=== PATIENT | female | born 1980 | race Caucasian/White ===

== ENCOUNTER → 2021-11-18 11:47 | Outpatient (REF) | payer BC, SELFPAY ==
--- NOTE | 2021-11-18 11:56 | CA_ITS ---
Transthoracic Echocardiogram Patient (Last, First, Middle): Ana Cristina García, Gender: Female Date of : 1980 Age: 41 Procedure Date: 11/18/2021 Procedure Type: Transthoracic Echocardiogram Location: [place] Height: 167.64 cm Weight: 106.6 kg BSA: 2.14 m2 Heart Rate: bpm BP: 115 / 80 mmHg Learning Development Specialist: CP/TO Referring MD: Sandra Alvarenga MD Symptoms: R00.2 PALPITATIONS Study Quality: Adequate ECG Rhythm: Sinus Conclusions: - The left ventricular systolic function is normal. The visually estimated ejection fraction is between 60-65%. - No obvious valvular pathology seen on this study. Findings Left Ventricle Normal left ventricular cavity size. There is normal left ventricular wall thickness. The left ventricular systolic function is normal. The visually estimated ejection fraction is between 60-65%. There is no evidence of regional wall motion abnormalities. Diastolic function is normal for age. LV peak global longitudinal strain -21.2% (normal). Right Ventricle Normal right ventricular cavity size and systolic function. Atria Both atria are normal in size. Aortic Valve There is a normal trileaflet aortic valve. There is no aortic valve stenosis. There is no aortic valve regurgitation. Mitral Valve The mitral valve appears normal. There is trace mitral valve regurgitation. There is no mitral valve stenosis. Pulmonic Valve The pulmonic valve is likely normal. Tricuspid Valve Normal tricuspid valve structure. There is trace tricuspid valve regurgitation. The pulmonary artery systolic pressure is normal. Great Vessels The asc aorta is normal in size. Venous The inferior vena cava is normal in size and collapses greater than 50% with inspiration. Pericardium/Pleural There is no evidence of pericardial effusion. Prior Study Comparison No significant change compared to prior study dated: 03/12/2016. (prior study from [facility]) Recommendations, Care & Conclusions No obvious valvular pathology seen on this study. Measurements 2D Linear Measurements IVSd: 0.79 0.6-0.9/0.6-1.0 cm LVIDd: 5.01 3.9-5.3/4.2-5.9 cm LVIDd Index: 2.34 2.4-3.2/2.2-3.1 cm/m2 LVIDs: 3.38 2.0-3.6 cm LVPWd: 0.90 0.7-1.1 cm LA Diam: 3.90 2.7-3.8/3.0-4.0 cm LAIDs Index: 1.82 1.5-2.3 cm/m2 LV Mass: 181.87 67-162/88-224 g LV Mass Index: 84.99 43-95/49-115 g/m2 LVOT Diam: 2.10 3.0+(-)1.3 cm 2D Systolic Function EF 4C: 56.40 >55% EF 2C: 57.10 >55% EF BiP: 58.40 >55% Mitral Valve MV Pk E: 0.98 MV PK A: 0.63 MV Decel Time: 197.00 E/A: 1.50 E'Lateral: 15.00 E'Medial: 9.25 E/E' Med: 10.60 E/E' Lat: 6.50 PHT: 58.00 MVA PHT: 3.79 Decel [place]: 4.98 Aortic Valve AoV Pk Williams: 1.53 AoV Mn Williams: 1.06 AoV VTI: 0.34 AoV Pk Grad: 9.00 Aov Mn Grad: 5.00 LOBITO Cont.VTI: 2.81 LVOT LVOT Pk Williams: 1.21 LVOT Mn Williams: 0.89 LVOT VTI: 0.27 LVOT Pk Grad: 6.00 LVOT Mn Grad: 3.00 LVOT Diam: 2.10 LVOT Area: 3.46 Diastolic Function MV Pk E: 0.98 MV Pk A: 0.63 E/A: 1.50 E'Medial: 9.25 E/E' Med: 10.60 E' Laterial: 15.00 E/E' Lat: 6.50 Right Ventricle TAPSE (mm): 24.50 TVS' Williams: 12.20 Tricuspid Valve TR Pk Williams: 1.82 TR Pk Grad: 13.00 RA Press: 3.00 RVSP: 16.00 Great Vessels Aorta Sinus of Valsalva: 2.89 2.0-3.[address] [place]: 1.96 1.7-3.4 cm Ao Asc: 2.60 2.1-3.4 cm Ao Arch: 2.50 Updated in Other Vendor System with Status of Final Donnie Adorno MD electronically signed on 11/19/2021 5:14:09 PM with status of Final
== END ==
LOC: HO.CARD 11:47
PROVIDERS: Visit Provider Internal Medicine
DX: R00.2 Palpitations (principal)
CPT/HCPCS: 93306; 93356